=== PATIENT | male | born 1955 | race African-American/Black ===

== ENCOUNTER 2022-10-05 12:39 | Inpatient (IN) | payer OTHER, BC ==
[2022-10-05 13:55] VITALS: BMI 25.7
[2022-10-05] MEDS ORDERED: MAG HYDROX/AL HYDROX/SIMETH 30 ML UNIT-DOSE CUP PO PRN (14:37)
[2022-10-05] MEDS ORDERED: IBUPROFEN 600 MG TABLET (FP) PO PRN (14:37)
[2022-10-05] MEDS ORDERED: BISMUTH SUBSALICYLATE 262 MG/15 ML BTL PO PRN (14:37)
[2022-10-05] MEDS ORDERED: LOPERAMIDE HCL 2 MG CAPSULE PO PRN (14:37)
[2022-10-05] MEDS ORDERED: MAGNESIUM HYDROX 2400MG/30ML ORAL SUSPENSION 30 ML CUP PO PRN (14:37)
[2022-10-05] MEDS ORDERED: NALOXONE HCL (KLOXXADO) 8 MG SPRAY NS PRN (14:37)
[2022-10-05] MEDS ORDERED: ONDANSETRON *ODT* 4 MG TABLET SL PRN (14:37)
[2022-10-05] MEDS ORDERED: NICOTINE 10 MG CARTRIDGE (INHALER) IH PRN (14:37)
[2022-10-05] MEDS ORDERED: BENZOCAINE/MENTHOL (CHLORASEPTIC ) LOZENGE MM PRN (14:37)
[2022-10-05] MEDS ORDERED: POLYETHYLENE GLYCOL (HEALTHYLAX) 3350 17 GM PACKET PO PRN (14:37)
[2022-10-05] MEDS ORDERED: ACETAMINOPHEN 325 MG TABLET (FP) PO PRN ×2 (14:37)
[2022-10-05] MEDS ORDERED: IBUPROFEN 400 MG TABLET (FP) PO PRN (14:37)
[2022-10-05] MEDS ORDERED: DICYCLOMINE HCL 10 MG CAPSULE PO PRN (14:37)
[2022-10-05] MEDS ORDERED: LIDOCAINE 5% TOPICAL PATCH TP ONE (15:51)
[2022-10-05] MEDS ORDERED: cloNIDine HCL 0.1 MG TABLET PO ONE (15:52)
[2022-10-05] MEDS: METHOCARBAMOL 500 MG TABLET PO PRN (15:53)
[2022-10-05] MEDS: MELATONIN 5 MG TABLETS PO SCH (22:35)
[2022-10-05] MEDS: THIAMINE HCL 100 MG TABLET (FP) PO SCH (22:35)
[2022-10-05] MEDS: LIDOCAINE PATCH REMOVAL MC SCH ×2 (22:35)
[2022-10-05] MEDS: METHYL SALICYLATE/MENTHOL OINT 30 GM TUBE TP SCH (22:38)
[2022-10-06] MEDS ORDERED: PATIENT'S OWN MEDICATION (NON-FORMULARY) (Amlodipine Besylate/Benazepril [Amlodipine-Benaz PO SCH (10:00)
[2022-10-06] MEDS: LIDOCAINE 5% TOPICAL PATCH TP SCH (10:29)
[2022-10-06] MEDS: amLODIPine BESYLATE 5 MG TABLET (FP) PO SCH (10:31)
[2022-10-06] MEDS: ABACAVIR/DOLUTEGRAVIR/LAMIVUDI (TRIUMEQ) TABLET -NF PO SCH (10:31)
[2022-10-06] MEDS: CHOLECALCIFEROL (VIT D3) 1,000 UNIT (25 MCG) TABLET PO SCH (10:31)
[2022-10-06] MEDS: LISINOPRIL 20 MG TABLET PO SCH (10:31)
[2022-10-06] MEDS: PRENATAL VITAMINS W/ FOLIC ACID TABLET (FP) PO SCH (10:33)
[2022-10-06] MEDS ORDERED: LORazepam 1 MG TABLET PO PRN (10:51)
[2022-10-06 11:04] LABS: HEMATOCRIT 37.1 % (35.4-49); MCH 32.8 pg (25.7-33.7); MCHC 32.4 g/dl (32.0-35.9); MEAN CELL VOLUME 101.1 fl (80-96); MEAN PLT VOLUME 8.1 fl (7.5-11.1); PLATELET COUNT 251 10^3/uL (134-434); RBC 3.67 M/mm3 (4.00-5.60); RDW 14.2 % (11.9-15.9)
[2022-10-06 11:09] LABS: CALCIUM 9.4 mg/dL (8.5-10.1)
[2022-10-06 11:10] LABS: ALBUMIN 3.4 g/dl (3.4-5.0); BLOOD UREA NITROGEN 10.6 mg/dL (7-18)
[2022-10-06 11:13] LABS: CREATININE 1.1 mg/dL (0.55-1.3)
[2022-10-06 11:15] LABS: BILIRUBIN,TOTAL 0.9 mg/dL (0.2-1); TOT PROT 7.4 g/dl (6.4-8.2)
[2022-10-06] MEDS: LORazepam 2 MG TABLET PO SCH ×2 (20:25→22:08)
[2022-10-06] MEDS: THIAMINE HCL 100 MG TABLET (FP) PO SCH (22:08)
[2022-10-06] MEDS: METHOCARBAMOL 500 MG TABLET PO PRN (22:08)
[2022-10-06] MEDS: MELATONIN 5 MG TABLETS PO SCH (22:08)
[2022-10-06] MEDS: METHYL SALICYLATE/MENTHOL OINT 30 GM TUBE TP SCH (22:09)
[2022-10-06] MEDS: LIDOCAINE PATCH REMOVAL MC SCH ×2 (22:09)
[2022-10-07] MEDS: LORazepam 1 MG TABLET PO SCH ×4 (05:29→22:41)
[2022-10-07] MEDS: LIDOCAINE 5% TOPICAL PATCH TP SCH (10:32)
[2022-10-07] MEDS: LISINOPRIL 20 MG TABLET PO SCH (10:33)
[2022-10-07] MEDS: PRENATAL VITAMINS W/ FOLIC ACID TABLET (FP) PO SCH (10:33)
[2022-10-07] MEDS: CHOLECALCIFEROL (VIT D3) 1,000 UNIT (25 MCG) TABLET PO SCH (10:33)
[2022-10-07] MEDS: amLODIPine BESYLATE 5 MG TABLET (FP) PO SCH (10:33)
[2022-10-07] MEDS: ABACAVIR/DOLUTEGRAVIR/LAMIVUDI (TRIUMEQ) TABLET -NF PO SCH (10:34)
[2022-10-07] MEDS: THIAMINE HCL 100 MG TABLET (FP) PO SCH (22:40)
[2022-10-07] MEDS: MELATONIN 5 MG TABLETS PO SCH (22:40)
[2022-10-07] MEDS: METHYL SALICYLATE/MENTHOL OINT 30 GM TUBE TP SCH (22:42)
[2022-10-07] MEDS: LIDOCAINE PATCH REMOVAL MC SCH ×2 (22:42)
[2022-10-08] MEDS ORDERED: LORazepam 0.5 MG TABLET PO PRN
[2022-10-08] MEDS: LORazepam 0.5 MG TABLET PO SCH ×4 (05:34→23:21)
[2022-10-08] MEDS: METHOCARBAMOL 500 MG TABLET PO PRN (05:35)
[2022-10-08] MEDS: amLODIPine BESYLATE 5 MG TABLET (FP) PO SCH (10:08)
[2022-10-08] MEDS: LISINOPRIL 20 MG TABLET PO SCH (10:08)
[2022-10-08] MEDS: ABACAVIR/DOLUTEGRAVIR/LAMIVUDI (TRIUMEQ) TABLET -NF PO SCH (10:08)
[2022-10-08] MEDS: PRENATAL VITAMINS W/ FOLIC ACID TABLET (FP) PO SCH (10:08)
[2022-10-08] MEDS: LIDOCAINE 5% TOPICAL PATCH TP SCH (10:09)
[2022-10-08] MEDS: CHOLECALCIFEROL (VIT D3) 1,000 UNIT (25 MCG) TABLET PO SCH (10:09)
[2022-10-08] MEDS: THIAMINE HCL 100 MG TABLET (FP) PO SCH (23:21)
[2022-10-08] MEDS: MELATONIN 5 MG TABLETS PO SCH (23:21)
[2022-10-08] MEDS: LIDOCAINE PATCH REMOVAL MC SCH ×2 (23:22)
[2022-10-08] MEDS: METHYL SALICYLATE/MENTHOL OINT 30 GM TUBE TP SCH (23:39)
[2022-10-09] MEDS ORDERED: LORazepam 0.5 MG TABLET PO ONE (05:00)
[2022-10-09 09:50] VITALS: BP 146/102; PULSE 106; RESP 20; TEMP 97.8
[2022-10-09] MEDS: LISINOPRIL 20 MG TABLET PO SCH (10:14)
[2022-10-09] MEDS: PRENATAL VITAMINS W/ FOLIC ACID TABLET (FP) PO SCH (10:14)
[2022-10-09] MEDS: amLODIPine BESYLATE 5 MG TABLET (FP) PO SCH (10:14)
[2022-10-09] MEDS: METHOCARBAMOL 500 MG TABLET PO PRN (10:14)
[2022-10-09] MEDS: ABACAVIR/DOLUTEGRAVIR/LAMIVUDI (TRIUMEQ) TABLET -NF PO SCH (10:14)
[2022-10-09] MEDS: CHOLECALCIFEROL (VIT D3) 1,000 UNIT (25 MCG) TABLET PO SCH (10:15)
[2022-10-09] MEDS: LIDOCAINE 5% TOPICAL PATCH TP SCH (10:16)
== END 2022-10-09 11:56 | disposition home or self-care (01) | DRG 897 ==
LOC: YASAS 12:39 → Y6N 15:26
PROVIDERS: ADMIT Allergy & Immunology; ATTEND Family Medicine
PROC: HZ2ZZZZ Detoxification Services for Substance Abuse Treatment (ICD-10-PCS; principal; 2022-10-05)
DX: F10.230 Alcohol dependence with withdrawal, uncomplicated (principal); B20 Human immunodeficiency virus [HIV] disease; F12.20 Cannabis dependence, uncomplicated; F17.210 Nicotine dependence, cigarettes, uncomplicated; Z79.899 Other long term (current) drug therapy; I10 Essential (primary) hypertension; Z96.642 Presence of left artificial hip joint; Z86.19 Personal history of other infectious and parasitic diseases; Z87.39 Personal history of other diseases of the musculoskeletal system and connective tissue; Z99.89 Dependence on other enabling machines and devices
CPT/HCPCS: 36415; 80053; 85027; 86780; 87811; 93005; 93010; C9803-CS; U0003; U0005